=== PATIENT | male | born 1985 | race Hispanic/Latino ===

== ENCOUNTER 2018-04-07 23:55 | Inpatient (IN) | payer MEDICAID ==
[2018-04-08] MEDS ORDERED: Sodium Chloride 0.9% 1,000 ML IV ONE (00:23)
--- NOTE | 2018-04-08 00:23 | C.PDOC ---
Addendum entered and electronically signed by Bertin Caal MD 04/08/18 12:27: Addendum Addendum: 04/08/18 12:25 signed over @ 0700, initial eval for abd pain but pt with confused story, later seeking psych eval pt seen and examined, tearful, argumentative, anxious, [place] Daily meds given Extra Ativan PO given for anxiety 1230: d/w Crisis pt will accept voluntary inpt eval for Depression ok to admit to 5E Addendum entered and electronically signed by Bernie Quinterso MD 04/08/18 06:24: Physician Patient Turnover Patient Signed Over To: Bertin Caal Handoff Comments: [place] [facility] [place]post[place] Addendum entered and electronically signed by Bernie Quinteros MD 04/08/18 03:35: Addendum Addendum: 04/08/18 03:34 ekg as read by me nsr 65 bpm, nsstt changes cxr as read by me =no infiltrate, effusion or pneumo Addendum entered and electronically signed by Bernie Quinteros MD 04/08/18 02:15: Addendum Addendum: 04/08/18 02:13 pt returned to the ed saying he is depressed and wants to be seen by crisis. Decision To Admit - Pt Status Changed To: Hospital Disposition Of: Inpatient - Admit Certification Admit to Inpatient:: After my assessment, the patient will require hospitaliz ation for at least two midnights. This is because of the severity of symptoms shown, intensity of services needed, and/or the medical risk in this patient being treated as an outpatient. - InPatient: Physician Admission Certification:: After my assessment, the patient will require hospitalization for at least two midnights. This is because of the severity of symptoms shown, intensity of services needed, and/or the medical risk in this patient being treated as an outpatient. - . Bed Request Type: Psychiatry Admitting Physician: Shawn Valladares Patient Diagnosis: Depression Disposition Discussed With DrAram: Shawn Valladares Comment: accepted the pt on his service and took over the care at 2:15 AM Doctor Will See Patient In The: Hospital Counseled Patient/Family Regarding: Studies Performed, Diagnosis Clinical Impression: Depression Disposition Time: 00:23 Condition: FAIR Referrals: FAMILY PROVIDER,NO [Primary Care Provider] - Stand Alone Forms: [employer] (Gabonese) Original Note: History Of Present Illness 32 year old male presents to the ED c/o mid epigastric abdominal pain for the past 12 hours. Patient reports having a history of gastritis and the symptoms feel the same. Patient describes his pain as sharp, stabbing. Patient denies fever, chills, nausea, vomit, diarrhea, rash, dysuria, hematuria. Time Seen by Provider: 04/08/18 00:23 Chief Complaint (Nursing): Abdominal Pain History Per: Patient History/Exam Limitations: no limitations Onset/Duration Of Symptoms: Hrs (12) Current Symptoms Are (Timing): Still Present Location Of Pain/Discomfort: Epigastric Radiation Of Pain To:: None Quality Of Discomfort: Aching, Stabbing Associated Symptoms: denies: Nausea, Vomiting, Diarrhea, Loss Of Appetite, Urinary Symptoms Recent travel outside of the [place]: No Additional History Per: Patient Past Medical History Reviewed: Historical Data, Nursing Documentation, Vital Signs - Medical History PMH: Anxiety, Bipolar Disorder, Depression, Gastritis, Gastrointestinal Ulcer, Hepatitis (HEP C), Post Traumatic Stress Disorder Denies: Diabetes, HIV, HTN, Chronic Kidney Disease, Seizures, Sexually Transmitted Disease Surgical History: No Surg Hx - [facility] Procedures DETOXIFICATION SERVICES FOR SUBSTANCE ABUSE TREATMENT (12/04/17) GROUP CYBER THREAT ANALYST FOR SUBSTANCE ABUSE TREATMENT, PSYCHOEDUCATION (02/25/16) GROUP PSYCHOTHERAPY (12/04/17) INDIV PSYCHOTHERAPY FOR SUBSTANCE ABUSE TREATMENT, SUPPORT (12/04/17) INDIV PSYCHOTHERAPY FOR SUBSTANCE ABUSE, COGNITIV BEHAVIORAL (12/04/17) INDIV PSYCHOTHERAPY FOR SUBSTANCE ABUSE, PSYCHOEDUCATION (12/04/17) INDIVIDUAL PSYCHOTHERAPY, COGNITIVE-BEHAVIORAL (12/04/17) INDIVIDUAL PSYCHOTHERAPY, SUPPORTIVE (12/04/17) Family History: States: Unknown Family Hx - Social History Hx Tobacco Use: No Hx Alcohol Use: No (Denies any alcohol) Hx Substance Use: No - Immunization History Hx Tetanus Toxoid Vaccination: No Hx Influenza Vaccination: No Hx Pneumococcal Vaccination: No Review Of Systems Constitutional: Negative for: Fever, Chills Cardiovascular: Negative for: Chest Pain Respiratory: Negative for: Cough, Shortness of Breath Gastrointestinal: Positive for: Abdominal Pain. Negative for: Nausea, Vomiting, Diarrhea Skin: Negative for: Rash Neurological: Negative for: Weakness, Numbness Physical Exam - Physical Exam Appears: Non-toxic, No Acute Distress Skin: Warm, Dry Head: Normacephalic Eye(s): bilateral: Normal Inspection Neck: Supple Chest: Symmetrical Cardiovascular: Rhythm Regular Respiratory: No Rales, No Rhonchi, No Wheezing Gastrointestinal/Abdominal: Soft, Tenderness (mid epigastric), No Guarding, No Rebound Extremity: Bilateral: Atraumatic, Normal Color And Temperature, Normal ROM Neurological/Psych: Oriented x3, Normal Speech, Normal Cognition Gait: Steady ED Course And Treatment - Laboratory Results Result Diagrams: 04/08/18 00:33 04/08/18 00:33 Pulse Ox Interpretation: Normal Progress Note: Plan: - Labs. - CT abd/pelvis. - Protonix 40 mg IVP. - IV fluids. - Toradol 30 mg IVP. - Zofran 4 mg IVP. - UA. 1:20 AM went to re- examine the pt , but pt had eloped. Nurse had removed the iv's. Disposition Counseled Patient/Family Regarding: Studies Performed, Diagnosis - Disposition Referrals: FAMILY PROVIDER,NO [Primary Care Provider] - Disposition: ELOPEMENT - ER ONLY Disposition Time: 00:23 Condition: FAIR Forms: [employer] (Gabonese) - Clinical Impression Clinical Impression: Abdominal pain - Scribe Statement The provider has reviewed the documentation as recorded by the Scribe Jean Howe All medical record entries made by the Scribe were at my direction and personally dictated by me. I have reviewed the chart and agree that the record accurately reflects my personal performance of the history, physical exam, medical decision making, and the department course for this patient. I have also personally directed, reviewed, and agree with the discharge instructions and disposition.
[2018-04-08 00:37] LABS: BASO % 0.6 % (0.0-2.0); EOS # 0.2 K/uL (0.0-0.7); EOS % 3.3 % (0.0-4.0); LYMPH # 0.9 K/uL (1.0-4.3); LYMPH % 13.9 % (20.0-40.0); MEAN CELL VOLUME 84.3 fL (80.0-94.0); MEAN CORPUSCULAR HEMOGLOBIN 28.7 pg (27.0-31.0); MEAN CORPUSCULAR HGB CONC 34.1 g/dL (33.0-37.0); MEAN PLATELET VOLUME 7.9 fL (7.2-11.7); MONO # 0.5 K/uL (0.0-0.8); MONO % 7.2 % (0.0-10.0); NEUT # 4.9 K/uL (1.8-7.0); RBC 4.19 Mil/uL (4.40-5.90); RED CELL DISTRIBUTION WIDTH 12.8 % (11.5-14.5); WHITE BLOOD COUNT 6.6 K/uL (4.8-10.8)
[2018-04-08 00:45] LABS: INR 1.4; PROTHROMBIN TIME 14.8 SECONDS (9.7-12.2)
[2018-04-08 00:57] LABS: ALB/GLOB RATIO 1.7 (1.0-2.1); ALBUMIN 4.2 g/dL (3.5-5.0); ALT/SGPT 21 U/L (21-72); AST/SGOT 15 U/L (17-59); BLOOD UREA NITROGEN 11 mg/dL (9-20); CALCIUM 9.2 mg/dl (8.6-10.4); GFR NON-AFRICAN AMERICAN > 60; LIPASE 47 U/L (23-300)
[2018-04-08 01:07] LABS: BARBITURATES, UR NEGATIVE (NEGATIVE); OPIATES, UR NEGATIVE (NEGATIVE); PHENCYCLIDINE, UR NEGATIVE (NEGATIVE)
[2018-04-08 01:14] LABS: BENZODIAZEPINES, UR POSITIVE (NEGATIVE)
[2018-04-08] MEDS ORDERED: Iodixanol 320 MG/ML 100 ML BOTTLE IV ONE (01:20)
--- NOTE | 2018-04-08 06:55 | RAD ---
Date of service: 04/08/2018 HISTORY: psych screen COMPARISON: No prior. FINDINGS: LUNGS: Mild venous congestion. Right hilar prominence. PLEURA: No significant pleural effusion identified, no pneumothorax apparent. CARDIOVASCULAR: No atherosclerotic calcification present Normal. OSSEOUS STRUCTURES: No significant abnormalities. VISUALIZED UPPER ABDOMEN: Normal. OTHER FINDINGS: None. IMPRESSION: Mild venous congestion. Right hilar prominence.
[2018-04-08] MEDS ORDERED: Pantoprazole 40 mg EC Tab PO ONE ×2 (08:14→08:21)
--- NOTE | 2018-04-08 14:15 | PCM.BM ---
<Keren Rabago - Last Filed: 04/08/18 14:13> Treatment Plan Problems - Problems identified on initial assessmt Depression Date Initiated: 04/08/18 Time Initiated: 14:13 Assessment reference: NA Status: Active Substance Abuse Date Initiated: 04/08/18 Time Initiated: 14:14 Assessment reference: NA Status: Active Treatment assets and liabiliti Patient Assests: cooperative, educated, motivated, self-reliant, ADL independent, negotiates basic needs, cognitively intact Patient Liabilities: live alone, financial problems, substance abuse (Benzo, THC), medical problems - Milieu Protocol Maintain good personal hygiene: daily Encourage regular showers, daily Remind patient to perform daily oral care, daily Assist patient to perform ADL's (Self) Conduct patient checks and document Observation sheet: Q15 minutes Maintain personal safety: every shift Educate patient to report safety concerns to staff, every shift Monitor environment for contraband/sharps Medication safety: Monitor for expected outcome, potential side effects: every shift, Assess barriers to learning: every shift, Assess readiness for medication education: every shift <Frederic Krishna - Last Filed: 04/10/18 12:40> - Diagnosis (1) Mood disorder Status: Acute Interventions: 04/10/18 12:40 * Assess/adjust medications daily and /or as needed * See patient on an individual basis 7x/week to assess symptoms of depression * Monitor for side effects & effectiveness of medications * (2) Benzodiazepine abuse Status: Acute Interventions: 04/10/18 12:41 * Assess 7x/week regarding severity of withdrawal * Educate regarding risks, benefits, side effects and alternatives of medications * Use Motivational Interviewing for abstinence * Use CBT for relapse prevention * Medication management for withdrawal symptoms * Encourage medication assisted treatment * <Sherie Blanco - Last Filed: 04/10/18 13:40> Family Contact Family involvement: Famliy/SO not involved - Goals for Treatment Patient goals for treatment: "I want to go to rehab in [place]." Discharge/Continuing Care - Education Needs Education Needs: Patient Medication, Patient Coping Skills, Patient Placement options, Patient Community resources - Discharge Discharge Criteria: Tolerates medication w/o severe side effects, No longer exhibiting s/s of withdrawal, Reduction of target symptoms Discharge to:: Substance Abuse Rehab - Treatment Team Participation Discussed with Family/SO: No Was Patient/Family/SO present at Treatment Team Meeting: Yes
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
[2018-04-09 06:35] VITALS: O2SAT 98
[2018-04-09] MEDS: Pantoprazole 40 mg EC Tab PO SCH (09:19)
--- NOTE | 2018-04-09 18:06 | PCM.PYCHPN ---
Psychiatric Progress Note - Psychiatric Progress Note Patient seen today, length of contact: 15 minutes Patient Chief Complaint: I needs more benzos. Problems Identified/Issues Discussed: Patient seen, chart reviewed, case discussed with the staff. Issues related to illness and treatment were discussed with the patient and staff. Tolerating treatment very well. Reported compliant with treatment with no adverse affects. Patient reported not feeling better with treatment. Asking for more benzos. Needs more time for stabilization. Patient was calm and partially cooperative. Awake, alert and oriented 3. Aftercare discussed with the patient. At the time of evaluation, patient had no delusions, no auditory or visual hallucinations, no suicidal ideations or homicidal ideations. Medical Problems: Hypertension Prostatitis Gastritis Diagnostic Results: Review DSM 5 Symptoms Update: Some improvement with treatment Medication Change: No Medical Record Reviewed: Yes Mental Status Examination - Cognitive Function Orientation: Person, Place, Situation, Time Memory: Intact Attention: WNL Concentration: WNL Association: WN Fund of Knowledge: [facility] Decription of patient's judgement and insights: Poor - Mood Mood: Depressed - Affect Affect: Depressed - Speech Speech: Appropriate - Formal Thought Process Formal Thought Process: No Impairment - Suicidal Ideation Suicidal Ideation: No - Homicidal Ideation Homicidal Ideation: No Goal/Treatment Plan - Goal/Treatment Plan Need for Continued Stay: Remain at risks for inpatient hospitalization, Discharge may exacerbated symptoms, Severe functional impairment Progress Toward Problem(s) and Goals/Treatment Plan: Patient education. Supportive therapy. CBT for relapse prevention. NE for abstinence. Continue treatment as before. Estimated Date of D/C: 04/14/18 - Smoking Cessation Smoking Cessation Initiated: No Reason for not providing: Patient does not smoke cigarettes
[2018-04-10] MEDS: Pantoprazole 40 mg EC Tab PO SCH (09:45)
--- NOTE | 2018-04-10 11:51 | PCM.PYCHPN ---
Psychiatric Progress Note - Psychiatric Progress Note Patient seen today, length of contact: 15 minutes Patient Chief Complaint: I was feeling depressed and suicidal.' Problems Identified/Issues Discussed: Patient seen and evaluated, chart reviewed and discussed with the nurse. Patient reports depressed mood but reports improvement in the feelings of hopelessness and helplessness. As per the staff patient remained isolated and withdrawn. He reports poor sleep and poor appetite and still complains of abdominal pain. Patient also reports withdrawal symptoms including anxiety, and headaches. He is tolerating the withdrawal medications and denies any side effects. He is taking the medications and denies any side effects. Symptoms are improving and he needs more time for stabilization Supportive therapy and psychoeducation were given. Medication Change: No Medical Record Reviewed: Yes Mental Status Examination - Cognitive Function Orientation: Person, Place, Situation, Time Memory: Intact Attention: WNL Concentration: Poor Association: WNL Fund of Knowledge: Poor - Mood Mood: Depressed, Anxious - Affect Affect: Constricted, Depressed - Speech Speech: Appropriate - Formal Thought Process Formal Thought Process: Paranoia - Suicidal Ideation Suicidal Ideation: No - Homicidal Ideation Homicidal Ideation: No Goal/Treatment Plan - Goal/Treatment Plan Need for Continued Stay: Remain at risks for inpatient hospitalization, Discharge may exacerbated symptoms, Severe functional impairment Progress Toward Problem(s) and Goals/Treatment Plan: Bipolar 1 disorder depressed with psychotic features. PTSD chronic. Cannabis use disorder severe. Anxiolytics use disorder severe. Opiate use disorder severe in early remission Patient education. Supportive therapy. CBT for relapse prevention. MS for abstinence. Gabapentin 600 mg 3 times a day, Mirtazapine 15 mg at bedtime, Flomax 0.4 mg at bedtime, Risperdal 1 mg twice a day Lamictal 100 mg daily Other when necessary medications. Estimated Date of D/C: 04/14/18
[2018-04-11 07:12] VITALS: BP 97/63; PULSE 79; RESP 18; TEMP 98.6
[2018-04-11] MEDS: Pantoprazole 40 mg EC Tab PO SCH (09:32)
--- NOTE | 2018-04-11 19:37 | CARD ---
APPROVED REPORT Date of service: 04/08/2018 EKG Measurement Heart [id number] <Conclusion> Normal sinus rhythm with sinus arrhythmia Normal ECG
== END 2018-04-11 14:43 | disposition home or self-care (01) | DRG 430 ==
LOC: C.ER 23:55 → C.5E 04-08 12:24
PROC: GZ3ZZZZ Medication Management (ICD-10-PCS; principal; 2018-04-08)
PROC: HZ89ZZZ Medication Management for Substance Abuse Treatment, Other Replacement Medication (ICD-10-PCS; 2018-04-08)
PROC: GZ56ZZZ Individual Psychotherapy, Supportive (ICD-10-PCS; 2018-04-08)
PROC: HZ59ZZZ Individual Psychotherapy for Substance Abuse Treatment, Supportive (ICD-10-PCS; 2018-04-08)
DX: F31.5 Bipolar disorder, current episode depressed, severe, with psychotic features (principal); F13.10 Sedative, hypnotic or anxiolytic abuse, uncomplicated; B19.20 Unspecified viral hepatitis C without hepatic coma; F11.21 Opioid dependence, in remission; F12.20 Cannabis dependence, uncomplicated; F43.12 Post-traumatic stress disorder, chronic; Z62.810 Personal history of physical and sexual abuse in childhood; I10 Essential (primary) hypertension; N41.9 Inflammatory disease of prostate, unspecified; K29.70 Gastritis, unspecified, without bleeding; Z87.11 Personal history of peptic ulcer disease; Z81.8 Family history of other mental and behavioral disorders